=== PATIENT | female | born 1985 | race Caucasian/White ===

== ENCOUNTER 2020-03-29 05:06 | Inpatient (IN) | payer OTHER ==
--- NOTE | 2020-03-27 14:38 | HPE ---
ESTIMATED DATE OF ADMISSION: 03/29/2020 HISTORY OF PRESENT ILLNESS: This lady is a 34-year-old, 4, para 2, last menstrual period (LMP) 06/30/2019, estimated date of confinement April 05, 2020, booked for a repeat section March 29, 2020. PAST HISTORY: In 2014, early spontaneous . November 04, 2015, 39 week section for IUGR, 5 pounds, 6 ounces. of January 15, 2018 at 39 weeks, repeat section. Small for gestational age, 5 pounds, 9 ounces. LABORATORY DATA: O positive, HIV negative, hepatitis negative, RPR, rubella immune, varicella immune. Pap within normal limits. Urine negative. Gonorrhea and chlamydia are negative. One-hour glucose was 67. Group B strep (GBS) is positive. The rest of the examination unremarkable. PHYSICAL EXAMINATION: She is normocephalic, atraumatic. Neck full range of motion. Pupils equal and reactive to light. Distal pulses symmetric. No evidence of deep venous thrombosis (DVT), pulmonary embolus (PE) or superficial phlebitis. Chest is clear bilaterally at the bases. No wheezes or rhonchi. No costovertebral angle (CVA) tenderness. Abdomen is soft. Four quadrant bowel sounds are noted. Incisional site is clean and dry. Vertex presenting. heart rate is 140 per minute with accelerations on the monitor. She has no arthralgia, myalgia or complaint of joint pain, no complaint of cough, wheeze, shortness of breath or dyspnea on exertion. No nausea, vomiting, diarrhea or constipation. No urgency or frequency. Presently, her blood pressure is 109/63, respirations are 18, pulse is 78. She is afebrile. Her weight at the present time is 146, her body mass index (BMI) is 22.3. ASSESSMENT/PLAN: We discussed the risks and benefits of section, risk being hemorrhage, infection, perforation, , reoperation, remote possibility blood transfusion, remote possibility of hysterectomy for life threatening bleeding issues. Remote possibility of laceration and/or admission to the NICU. The patient expressed understanding of all the complications and risks, signed the consent form. We had a 20 minute discussion with examination. Medications were to be picked up at [facility] and COVID testing 24 hours before. Presently, we have a 39 plus week of gestation with small for gestational age . Estimated weight is 6 pounds, 1 ounce on earlier ultrasound with a normal SD ratio and RI index and normal MARTA. We await consultation with anesthesia. All questions were answered. DOMITILA
[~2020-03-29] VITALS: Ht 165.1 cm; Wt 66.3 kg
[~2020-03-29 05:06] MED LIST: PREN200C PO; ZYRTTAB8 PO
[2020-03-29] MEDS ORDERED: LACTATED RINGER'S 1000 ML IV STA (05:32)
[2020-03-29] MEDS ORDERED: ceFAZolin SOD 2 GM in IV 1 EA IV ONE (05:45)
[2020-03-29] MEDS ORDERED: AZITHROMYCIN INJ 500 MG, VIAL MATE ADAPTER 1 EACH in D5W 250 ML IV ONE (05:45)
[2020-03-29] MEDS ORDERED: BUPIVACAINE HCL 0.25% 10ML VIAL SC ONE (05:45)
[2020-03-29] MEDS ORDERED: BICITRA 30ML SOLN UDC PO ONE (05:45)
[2020-03-29] MEDS ORDERED: ACETAMINOPHEN 650 MG SUPP PR ONE (06:00)
[2020-03-29 06:05] LABS: HEMATOCRIT 32.8 % (36.0-47.0); MEAN CORPUSCULAR HEMOGLOBIN 31.1 pg (27.0-33.0); MEAN CORPUSCULAR HGB CONC 33.5 g/dl (32.0-36.5); MEAN CORPUSCULAR VOLUME 92.7 fl (80.0-96.0); PLATELET COUNT, AUTOMATED 231 10^3/uL (150-450); RED BLOOD COUNT 3.54 10^6/uL (4.00-5.40); WHITE BLOOD COUNT 5.7 10^3/uL (4.0-10.0)
[2020-03-29] MEDS ORDERED: LR 1,000 ML IV SCH (06:30)
[2020-03-29] MEDS ORDERED: MORPHINE PRES-FREE INJ 10 MG/10 ML VIAL (J2274) As Ordered ONE (07:17)
[2020-03-29] MEDS ORDERED: OXYTOCIN INJ 10 UNITS/ML VIAL (J2590) As Ordered ONE (07:17)
[2020-03-29] MEDS ORDERED: NALOXONE INJ 0.4MG/1ML VIAL (J2310 PER 1MG) IV PRN ×2 (10:05)
[2020-03-29] MEDS ORDERED: ONDANSETRON 4MG/2ML VIAL IV PRN ×2 (10:05→12:15)
[2020-03-29] MEDS ORDERED: METOCLOPRAMIDE INJ 10MG/2ML VIAL (J2765 PER 1) IV PRN (10:05)
[2020-03-29] MEDS ORDERED: diphenhydrAMINE 50MG/ML VIAL (J1200) IV PRN (10:05)
[2020-03-29] MEDS ORDERED: NALBUPHINE HCL 10 MG/ML AMP (J2300) IV PRN (10:05)
[2020-03-29] MEDS ORDERED: ONDANSETRON 4MG/2ML VIAL As Ordered ONE (10:33)
[2020-03-29] MEDS ORDERED: ePHEDrine SULFATE 25 MG/5 ML(5MG/ML) SYRINGE As Ordered ONE (10:33)
[2020-03-29] MEDS ORDERED: dexameTHASONE 4 MG/ML 1ML VIAL (J1100 PER 1MG) As Ordered ONE (10:33)
[2020-03-29 10:45] LABS: CORD GAS ABE A -5.1; CORD GAS HCO3 A 21.5 MEQ/L; CORD GAS O2 SAT A 52.5 %; CORD GAS PCO2 A 45.4 mmHg; CORD GAS PH A 7.293 UNITS; CORD GAS PO2 A 22.8 mmHg; CORD GAS SBC A 19.3 MEQ/L; CORD GAS TCO2 A 22.9 MEQ/L
[2020-03-29 10:48] LABS: CORD GAS ABE V -3.9; CORD GAS HCO3 V 20.8 MEQ/L; CORD GAS O2 SAT V 76.6 %; CORD GAS PCO2 V 37.2 mmHg; CORD GAS PH V 7.366 UNITS; CORD GAS PO2 V 31.4 mmHg; CORD GAS SBC V 20.8 MEQ/L
[2020-03-29] MEDS ORDERED: KETOROLAC 60MG 2ML VIAL As Ordered ONE (11:04)
[2020-03-29] MEDS ORDERED: OXYTOCIN INJ 10 UNITS/ML VIAL (J2590) IV ONE (12:00)
[2020-03-29] MEDS ORDERED: METHYLERGONOVINE MALEATE 0.2 MG TAB PO PRN (12:00)
[2020-03-29] MEDS ORDERED: ANUSOL HC CREAM 30GM TOP PRN (12:00)
[2020-03-29] MEDS ORDERED: RHOGAM 300 MCG (1500 IU) INJ (J2790) IM SCH (12:00)
[2020-03-29] MEDS ORDERED: MEASLES,MUMPS,RUBELLA VACCINE INJ (MMR-II) (90707) SC SCH (12:00)
[2020-03-29] MEDS ORDERED: OXYTOCIN DRIP 30 UNITS in IV 1 EA IV ONE (12:00)
[2020-03-29] MEDS ORDERED: ACETAMINOPHEN TAB 650MG DOSE (2X325MG) PO PRN (12:00)
[2020-03-29] MEDS ORDERED: ACETAMINOPHEN 500 MG TAB PO PRN (12:00)
[2020-03-29] MEDS ORDERED: MOM 30ML SUSPENSION UDC PO PRN (12:00)
[2020-03-29] MEDS ORDERED: IBUPROFEN 600MG TAB PO PRN (12:00)
[2020-03-29] MEDS ORDERED: fentaNYL 100 MCG/2 ML INJECTION (J3010) IV PRN (12:15)
[2020-03-29] MEDS ORDERED: oxyCODONE 5MG TAB PO PRN (12:15)
[2020-03-29 13:00] VITALS: BP 122/66
[2020-03-29] MEDS: ULTRACET TAB PO PRN (13:21)
[2020-03-29 13:30] VITALS: BP 120/62
[2020-03-29 14:30] VITALS: BP 113/67
[2020-03-29] MEDS: DOCUSATE SODIUM 100 MG CAP PO PRN (17:10)
[2020-03-29] MEDS: KETOROLAC 30 MG/ML 1ML VIAL IV SCH ×2 (17:10→22:15)
[2020-03-29 18:00] VITALS: BP 104/60
[2020-03-29 22:00] VITALS: BP 132/58
[2020-03-30 02:00] VITALS: BP 126/62
[2020-03-30] MEDS: KETOROLAC 30 MG/ML 1ML VIAL IV SCH (04:41)
[2020-03-30 05:07] VITALS: BP 98/53
[2020-03-30 07:23] LABS: HEMATOCRIT 29.2 % (36.0-47.0); HEMOGLOBIN 9.8 g/dl (12.0-15.5); MEAN CORPUSCULAR HEMOGLOBIN 31.2 pg (27.0-33.0); MEAN CORPUSCULAR HGB CONC 33.6 g/dl (32.0-36.5); PLATELET COUNT, AUTOMATED 184 10^3/uL (150-450); RED BLOOD COUNT 3.14 10^6/uL (4.00-5.40); WHITE BLOOD COUNT 8.8 10^3/uL (4.0-10.0)
[2020-03-30] MEDS: PRENATAL VITAMINS CHEWABLE TABLET PO SCH (08:22)
[2020-03-30 10:00] VITALS: BP 119/56
[2020-03-30 14:00] VITALS: BP 124/63
[2020-03-30] MEDS: IBUPROFEN 800 MG TAB PO SCH ×2 (14:39→20:49)
[2020-03-30] MEDS: ULTRACET TAB PO PRN ×2 (17:13→23:19)
[2020-03-30 18:00] VITALS: BP 116/68
[2020-03-30] MEDS: DOCUSATE SODIUM 100 MG CAP PO PRN (20:49)
[2020-03-30 22:00] VITALS: BP 116/64
[2020-03-31 02:00] VITALS: BP 116/58
[2020-03-31] MEDS: IBUPROFEN 800 MG TAB PO SCH (04:47)
[2020-03-31] MEDS: ULTRACET TAB PO PRN (05:32)
[2020-03-31 06:00] VITALS: BP 133/59
[2020-03-31] MEDS ORDERED: IBUP80TA PO (07:09)
[2020-03-31] MEDS ORDERED: DOCU100C16 PO (07:09)
[2020-03-31] MEDS ORDERED: TRAM37.53 PO (07:09)
[2020-03-31] MEDS: PRENATAL VITAMINS CHEWABLE TABLET PO SCH (08:25)
--- NOTE | 2020-04-03 11:34 | DS ---
DATE OF ADMISSION: 03/29/2020 DATE OF DISCHARGE: 03/31/2020 DATE OF SERVICE: 03/31/2020 34-year-old, 4, now para 3 admitted for repeat section for small for gestational age infant, delivered a male , 6 pounds 3 ounces, 2800 grams, scores of 9 and 9 at 1 and 5 minutes, respectively, arterial pH 7.29, base excess -5.1, venous pH 7.36, base excess -3.9. On discharge, we discussed phlebitis, cystitis, mastitis, endometritis, and cellulitis, diet, exercise, pain management, perineal, breast, and wound care. The rest of the examination is unremarkable. Normocephalic, atraumatic. Neck full range of motion. Pupils equal and reactive to light. Distal pulses are symmetric. No evidence of deep venous thrombosis (DVT), pulmonary embolus (PE), or superficial phlebitis. Chest is clear bilaterally to bases. No wheezes or rhonchi. No costovertebral angle (CVA) tenderness. Abdomen is soft, four quadrant bowel sounds are noted. Incision is clean and dry. Blood pressure on discharge 133/59, respirations 16, pulse 45, temperature is 97.8. Admitting hemoglobin 11.0, hematocrit 32.8, and platelets 231. Discharge hemoglobin 9.8, hematocrit 29.2, and platelets are 184. In summary, term gestation, small for gestational age , short interval , male . All questions were answered, 20 minute discussion. Medications picked up at [facility]. Two-week incision check at [facility], six-week check at [facility]. Using condoms as a method of contraception until her can have a vasectomy. Patient will take the baby to [facility] for initial evaluation. DOMITILA
--- NOTE | 2020-04-04 14:07 | RO ---
DATE OF OPERATION: 03/29/2020 INDICATIONS: This lady is a 34-year-old 4, para 2, admitted for elective repeat section at 39 weeks because of small for gestational age. PREOPERATIVE DIAGNOSIS: Repeat section x3, small for gestational age. POSTOPERATIVE DIAGNOSIS: Repeat section x3, small for gestational age. OPERATION PROPOSED: Repeat section. OPERATION PERFORMED: Repeat section. ANESTHESIA: Spinal plus local anesthetic for intraperitoneal procedure. ESTIMATED BLOOD LOSS: 400 mL. SURGEON: Dr. Samy Cade SATELLITE TELEVISION INSTALLER: Dr. Richard MD PROCEDURE IN DETAIL: After adequate time-out, prepped and draped in the supine position, Mccarthy catheter in the bladder draining clear urine, sequentials in place, antibiotics appropriately preoperatively, acetaminophen suppository 1300 mg per rectum, a Pfannenstiel incision was made through the two previous ones, passing through abdominal layers, and securing hemostasis. Upon opening the peritoneal cavity, we noticed a thin lower uterine segment. Mobius was placed. The bladder was reflected well down, a low transverse incision, ARM draining clear liquor, we delivered a live male , weighing 6 pounds 3 ounces, 2800 grams, Apgars 9/10 at one and five minutes respectively. Placenta was manually removed, three vessels nuchal cord, membranes, and tissues intact. The uterus contracted well down under Pitocin. The lower segment was oversewn in the usual fashion in two layers, imbricating the second layer. Reperitonealization was then performed. With instrument and pad counts correct, the Mobius was removed. The ovaries and tubes appeared to be normal. Excessive blood clots were swept out. The abdomen was closed, running stitch for the peritoneum, same for the fascia, interrupted SQ, Dexon to the skin, Marcaine 0.25% 10 mL to the incision site. Mepore dressing was placed. The patient was taken back to the recovery room in good condition. DOMITILA
--- NOTE | 2020-04-04 14:08 | IPN ---
DATE: 03/30/2020 Postoperative day #1 and day #1. SUBJECTIVE: This is a 34-year-old 4, now para 3, had a repeat section x3 for small for gestational age at 39 weeks of gestation. Male , 6 pounds, 3 ounces, 2800 grams, Apgars of 9 and 9 at 1 and 5 minutes respectively. Arterial pH 7.29, base excess -5.1. Venous pH 7.36, base excess - 3.9. On her first date we discussed phlebitis, cystitis, mastitis, metritis, and cellulitis, diet, exercise, pain management, and perineal, breast, and wound care. PHYSICAL EXAMINATION: The rest of the examination is unremarkable. Normocephalic, atraumatic. Neck with full range of motion. Pupils equal and reactive to light. Chest is clear bilaterally at bases. No wheezes or rhonchi. No CVA tenderness. Abdomen is soft, four quadrant bowel sounds are noted. The incision is clean and dry. Blood pressure is 124/63, respirations are 18, pulse 62, temperature is 98.2. LABS: Her admitting hemoglobin was 11.0, hematocrit 32.8 and platelets were 231,000. day #1, hemoglobin 9.8, hematocrit 29.2, and platelets were 184,000. PLAN: Discharge tomorrow. Follow-up for two week incision check at the clinic, six weeks check. Meds were dispensed at [facility]. Baby will be discharged to follow-up with [facility]. All questions were answered, 20 minute discussion. DOMITILA
--- NOTE | 2020-04-12 09:52 | IPN ---
DATE: 03/29/2020 This patient requested circumcision of her male . After discussing the risks and benefits of circumcision, the medical to non-medical indications, the penile block and aftercare, she expressed understanding of penile block, aftercare, and bleeding, signed the consent form, all questions were answered, 20 minute discussion. We await the clearance by the staff nurse anesthetist. DOMITILA
[2021-01-25] MEDS ORDERED: SCOPOLAMINE 1MG TRANSDERMAL PATCH TOP ONE (05:45)
== END 2020-03-31 11:30 | disposition home or self-care (01) | DRG 773 ==
LOC: M LDI 05:06 → M OBS 12:55
PROVIDERS: ADMIT Obstetrics & Gynecology; ATTEND Obstetrics & Gynecology
PROC: 10D00Z1 Extraction of Products of Conception, Low, Open Approach (ICD-10-PCS; principal; 2020-03-29 07:30)
DX: O34.211 Maternal care for low transverse scar from previous cesarean delivery (principal); O99.824 Streptococcus B carrier state complicating childbirth; Z3A.39 39 weeks gestation of pregnancy; Z37.0 Single live birth

== ENCOUNTER 2020-09-14 06:03 | Day surgery (SDC) | payer OTHER ==
[~2020-09-14] VITALS: Ht 165.1 cm; Wt 61.1 kg
[~2020-09-14 06:03] MED LIST changes: +DOCU100C16 PO; +IBUP80TA PO; +TRAM37.53 PO
[2020-09-14] MEDS ORDERED: ceFAZolin SOD 2 GM in IV 1 EA IV ONE (07:00)
[2020-09-14] MEDS ORDERED: LR 1,000 ML IV ONE (07:00)
[2020-09-14] MEDS ORDERED: CelecoXIB (CeleBREX) 100 MG CAP PO ONE (07:00)
[2020-09-14] MEDS ORDERED: ROCURONIUM BROMIDE 50 MG/5 ML VIAL As Ordered ONE (07:10)
[2020-09-14] MEDS ORDERED: LACRILUBE (AKWA TEARS) OPHTH OINT 3.5 GM As Ordered ONE (07:10)
[2020-09-14] MEDS ORDERED: ACETAMINOPHEN 1000MG 100ML IV BTL (OFIRMEV) (J0131 PER 10MG) As Ordered ONE (07:10)
[2020-09-14] MEDS ORDERED: propofoL 200 MG/20 ML VIAL As Ordered ONE (07:10)
[2020-09-14] MEDS ORDERED: ONDANSETRON 4MG/2ML VIAL As Ordered ONE (07:10)
[2020-09-14] MEDS ORDERED: SUGAMMADEX SODIUM 500 MG/5 ML VIAL (BRIDION) As Ordered ONE (07:10)
[2020-09-14] MEDS ORDERED: LIDOCAINE 2% 100MG/5ML SDV (FOR ANES.) As Ordered ONE (07:10)
[2020-09-14] MEDS ORDERED: dexameTHASONE 4 MG/ML 1ML VIAL (J1100 PER 1MG) As Ordered ONE (07:10)
[2020-09-14] MEDS ORDERED: LIDOCAINE 1% SDV 30ML VIAL As Ordered ONE (07:11)
[2020-09-14] MEDS ORDERED: MIDAZOLAM INJ 2MG/2ML VIAL (J2250 PER 1MG) As Ordered ONE (07:11)
[2020-09-14] MEDS ORDERED: BUPIVACAINE HCL 0.25% 30ML VIAL As Ordered ONE (07:12)
[2020-09-14] MEDS ORDERED: fentaNYL 100 MCG/2 ML INJECTION (J3010) As Ordered ONE ×2 (07:12→09:15)
[2020-09-14] MEDS ORDERED: OXYC1TAB23 PO (07:40)
[2020-09-14] MEDS ORDERED: KETOROLAC 60MG 2ML VIAL As Ordered ONE (08:01)
[2020-09-14] MEDS ORDERED: LR 1,000 ML IV SCH (09:15)
[2020-09-14] MEDS ORDERED: HYDROMORPHONE HCL 0.5 MG/ 0.5 ML SYRINGE (J1170 PER 1) IV PRN (09:15)
[2020-09-14] MEDS ORDERED: ONDANSETRON 4MG/2ML VIAL IV PRN (09:15)
[2020-09-14] MEDS: fentaNYL 100 MCG/2 ML INJECTION (J3010) IV PRN ×4 (09:17→09:34)
[2020-09-14] MEDS ORDERED: KETOROLAC 30 MG/ML 1ML VIAL IV PRN (09:20)
[2020-09-14] MEDS ORDERED: PERCOCET 5MG/325MG TAB PO PRN (09:20)
[2020-09-14] MEDS: oxyCODONE 5MG TAB PO PRN ×2 (09:22→09:56)
--- NOTE | 2020-09-14 10:44 | ROOPDOC ---
[facility] Report Of Operation Report of Operation DATE OF PROCEDURE: 09/14/20 PREPROCEDURE DIAGNOSES: Umbilical hernia, midline diastases of the rectus muscle. POSTPROCEDURE DIAGNOSES:. umbilical hernia, midline diastases of the rectus muscle PROCEDURE: Open preperitoneal umbilical hernia repair with placement of 6.4 cm ventral patch mesh, retrorectus. SURGEON: Nelson Bunn MD VENDING ENTERPRISES SUPERVISOR: ANESTHESIA: General Anesthesia. ESTIMATED BLOOD LOSS: Approximately mL. COMPLICATIONS: . REMARKS: . PROCEDURE NOTE: . DESCRIPTION OF PROCEDURE: . NELSON BUNN MD Sep 14, 2020 10:44
[2020-09-14 10:55] VITALS: BP 124/57
== END 2020-09-14 10:55 | disposition home or self-care (01) ==
LOC: M SDC 06:03
PROVIDERS: ATTEND Surgery
DX: K42.9 Umbilical hernia without obstruction or gangrene (principal); Z88.8 Allergy status to other drugs, medicaments and biological substances
CPT/HCPCS: 49585; 81025; C1781; J0131; J0690; J1100; J1885; J2250; J2405; J3010